=== PATIENT | female | born 1990 | race Caucasian/White ===

== ENCOUNTER → 2017-02-25 | Outpatient (CLI) | payer OTHER ==
[~2017-02-25] MED LIST: NORETAB29 PO; PRLSR20 PO; PROP10TA54 PO; VALA1TAB2 PO
== END | disposition home or self-care (01) ==
LOC: C.PAPS 13:25
PROVIDERS: ATTEND Obstetrics & Gynecology
DX: R87.610 Atypical squamous cells of undetermined significance on cytologic smear of cervix (ASC-US) (principal)

== ENCOUNTER → 2017-05-13 | Outpatient (CLI) | payer OTHER ==
--- NOTE | 2017-05-13 15:29 | MAMMOGRAPHY REPORT ---
ULTRASOUND OF RIGHT BREAST: 05/13/2017 CLINICAL HISTORY: The patient reports a 2 week history of right upper inner breast pain, which is no longer present and has resolved. She denies any palpable lump, nipple discharge, or other complaints . COMPARISON: No prior exams were available for comparison. TECHNIQUE: Real-time targeted ultrasound of the right breast was performed. FINDINGS: Real-time, high resolution targeted ultrasound was performed of the area of the previous p ain pointed out by the patient in the right upper inner quadrant. Sonographically normal tissue is s een in this region, without evidence of a mass or other suspicious sonographic abnormality. IMPRESSION: ACR BI-RADS CATEGORY 1: NEGATIVE No sonographic abnormality at the site of right upper inner quadrant breast pain, which has now resol vivian. There is no sonographic evidence of malignancy. Recommend clinical follow-up. The patient was verbally notified of the results. Keren Kilgore M.D. ah/:05/13/2017 13:45:11 Route Delivery Supervisor: Keren Kilgore MD, [facility] letter sent: Normal 1/2 BI-RADS Code: ACR BI-RADS Category 1: Negative
== END | disposition home or self-care (01) ==
LOC: C.MAMM 13:28
PROVIDERS: ATTEND Physician Assistant
DX: N64.4 Mastodynia (principal)

== ENCOUNTER → 2018-03-17 | Outpatient (CLI) | payer OTHER | END | disposition home or self-care (01) | LOC: C.PAPS 14:32 | PROVIDERS: ATTEND Obstetrics & Gynecology | DX: R87.612 Low grade squamous intraepithelial lesion on cytologic smear of cervix (LGSIL) (principal); Z11.51 Encounter for screening for human papillomavirus (HPV) ==

== ENCOUNTER 2024-02-12 07:40 | Inpatient (IN) ==
[2024-02-12] MEDS ORDERED: LIDOCAINE 1% LOCAL 20 ML VIAL INFIL PRN (08:17)
[2024-02-12] MEDS ORDERED: OXYTOCIN 30 UNITS/NSS 30 UNITS/500 ML BAG IV PRN (08:17)
[2024-02-12] MEDS ORDERED: ACETAMINOPHEN 500 MG TAB PO PRN (08:17)
--- NOTE | 2024-02-12 08:28 | History & Physical Report ---
Date of Service February 12, 2024 Assessment & Plan (1) Encounter for induction of labor: Plan: 33 y/o at 38w 5d here for IOL: Freedman bulb Pitocin AROM as indicated Epidural prn Monitor heart tracing, category 1 Admission and Anticipated Discharge Date Admission Date: February 12, 2024 History of Present Illness Primary Care Provider: NO PCP 33 y/o female currently at 38w 5d with an NEHA 02/22/24 as determined by LMP, who is here for IOL: and Delivery Plans Obesity (BMI between 35-39 @ beginning of ) CHTN - Not on meds *Baby ASA daily start 12-28 wks, continue until delivery Gestational Diabetes Had regular appointments with OB denies Contractions + movement denies Fluid loss denies Vaginal bleeding External FHT and external uterine monitors used: Category 1 tracing, baseline rate 150, moderate variability, irregular uterine contractions OB Labs: Blood Type B Positive 07/14/23 Antibody Screen NEGATIVE 07/14/23 Hemoglobin 12.1 g/dl (12.0-16.0) 11/30/23 Hematocrit 37.8 % (37.0-47.0) 11/30/23 Mean Corpuscular Volume 90.6 fL (80.0-100.0) 07/14/23 Platelet Count 279 K/uL (130-400) 07/14/23 Rubella IgG Antibody Immune (Immune) 07/14/23 Rapid Plasma Reagin Nonreactive (Nonreactive) 07/14/23 Hepatitis B Surface Antigen. NON-REACTIVE (NON-REACTIVE) 07/14/23 Hepatitis C Antibody (EIA) NON-REACTIVE (NON-REACTIVE) 07/14/23 HIV (1&2) Ag and Ab Confirmation NON-REACTIVE (NON-REACTIVE) 07/14/23 Glucose 1 Hour 50 gm Load 132 mg/dl (70-130) H 11/30/23 Maternal Serum Alpha Fetoprotein 32.6 ng/mL 09/09/23 OB Optional Labs: Chlamydia trachomatis RNA Not Detected (NotDetected) 07/14/23 Neisseria gonorrhoeae RNA Not Detected (NotDetected) 07/14/23 Thyroid Stimulating Hormone (TSH) 0.833 uIu/ml (0.300-4.500) 05/30/19 Alpha Fetoprotein Triple Screen SEE NOTE 09/09/23 Labs Reviewed: Carrier screening-negative--mln cfdna-low risk--mln afp neg--akh Allergies Allergy/AdvReac Type Severity Reaction Status Date / Time Sulfa (Sulfonamide Allergy Intermediate HIVES Verified 02/12/24 08:10 Antibiotics) onion AdvReac Intermediate Gastrointestinal Verified 02/12/24 08:10 Upset Home Medications Medication Instructions Recorded Confirmed Type 21-iron fu-folic acid 1 tab PO DAILY 07/06/23 02/12/24 History [ Complete] pyridoxine (vitamin B6) 1 tab PO UNKNOWN 07/06/23 02/12/24 History acetone (urine) test (Ketone Urine #50 ea 12/18/23 02/11/24 Rx Test strips) blood-glucose sensor (FreeStyle #2 ea 12/29/23 02/11/24 Rx Jovan 3 Sensor device) Pepcid 1 tab PO DAILY 02/12/24 02/12/24 History aspirin 81 mg PO DAILY 02/12/24 02/12/24 History Patient History Medical History (Updated 02/12/24 @ 08:32 by Ned Nathan DO) History of chicken pox Orthodontics Dysphagia Herpes simplex oral only ERIN II (cervical intraepithelial neoplasia II) Breast pain Atopic dermatitis ASCUS with positive high risk HPV Acute streptococcal pharyngitis Acute atopic conjunctivitis No significant past medical history Surgical History Status post colposcopy S/P loop electrosurgical excision procedure H/O oral surgery History of wisdom tooth extraction Family History Grandfather Skin cancer Mother Valvular heart disease Grandmother (Maternal) Breast cancer Other Dyslipidemia Hypertension No significant family history Denies family history of Ovarian cancer Prostate cancer Colorectal cancer Social History (Updated 07/06/23 @ 13:31 by Carolyn Nick) Smoking Status: Never smoker Do You Dip or Chew Tobacco: No; Hx Alcohol Use: No Hx Substance Use: No Preferred Language: Wolof Twisthand Required: No Beliefs That Will Affect Care: None marital status: marital status details: Lloyd Lorenzo (35) [phone] Current Living Situation: Spouse Current Living Situation Comment: lives with spouse, dogs current occupational status: employed current occupation: [employer] Other Information That Helps Us Care for You: No Feels Safe at Home: Yes Safety Concerns: Feels Safe At This Time 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 Arzate Review of Systems denies chest pain or SOB denies fever/chills denies ABREU/changes in vision denies dysuria denies LE pain Physical Exam Physical Exam: General: Alert and oriented. No acute distress Cardiac: Regular rate and rhythm, no murmurs appreciated Respiratory: Lungs clear to auscultation bilaterally, No increased work of breathing Abdominal: Soft, non-tender, non-distended. Bowel sounds present. Gravid uterus. Extremities: No lower extremity edema, calves non-tender bilaterally FHT/[place]: Category 1 tracing, baseline rate 150, moderate variability, irregular uterine contractions Results & Data Vital Signs (Past 12 Hours) Vital Signs Temp Pulse Resp BP 02/12/24 07:56 36.7 C 20 02/12/24 07:52 98 H 138/86 Supervising Physician Co-Signing Physician Notes Patient seen with resident and agree with above findings and plan. Induction started with Freedman/Pit. Will AROM when appropriate. Category 1 tracing noted. Normal blood glucose on admission and will monitor as needed. Resident Activity Tracking Resident Involvement: Resident Care Provided Care Provided: OB Delivery
[2024-02-12 08:59] LABS: Hematocrit (blood only) 39.3 % (37.0-47.0); Hemoglobin 13.1 g/dl (12.0-16.0); Mean Corpuscular Hgb Conc 33.3 g/dL (32.0-36.0); Mean Corpuscular Volume 87.1 fL (80.0-100.0); Mean Platelet Volume 12.3 fL (9.4-12.4); Platelet Count 194 K/uL (130-400); RDW Coefficient of Variation 13.3 % (11.5-14.5); RDW Standard Deviation 42.1 fL (36.4-46.3); Red Blood Count 4.51 M/uL (4.20-5.40); White Blood Count 11.38 K/ul (4.8-10.8)
[2024-02-12] MEDS: OXYTOCIN 30 UNITS/NSS 30 UNITS/500 ML BAG IV PRN (09:04)
[2024-02-12] MEDS: LACTATED RINGER'S 1,000 ML IV PRN (09:04)
--- NOTE | 2024-02-12 16:15 | Labor Progress Brief Note ---
Date of Service February 12, 2024 Subjective notes contractions but not uncomfortable Assessment & Plan (1) Encounter for induction of labor: (2) Gestational diabetes: (3) Chronic hypertension affecting : Plan At a crossroads. Pit maxed without further monitoring. Recommend she have arom at this point, but she is uncertain she wants to move with this. Educated that need arom/srom to get moving further into more active labor. Patient and spouse express understanding. she initially thought she might get an epidural but then decided not to at that point. Can have epidural at any point. Patient desires to continue current management for another couple of hours. Fetus category one. Confirmed cephalic by ultrasound. Admission and Anticipated Discharge Date Admission Date: February 12, 2024 Physical Exam Physical Exam: difficult exam secondary to patient discomfort cx--3/80/-2 toco--q2-4, pit at 20 efm--150s with mod variability, small accels no decels Results & Data Vital Signs (Past 12 Hours) Vital Signs Temp Pulse Resp BP 02/12/24 15:02 100 H 02/12/24 15:02 134/66 02/12/24 14:00 86 02/12/24 14:00 138/73 02/12/24 13:02 91 H 02/12/24 13:02 140/69 02/12/24 11:55 18 02/12/24 11:55 36.7 C 18 02/12/24 11:52 77 02/12/24 11:52 116/65 02/12/24 10:57 83 02/12/24 10:57 128/65 02/12/24 10:01 98 H 02/12/24 10:01 132/83 02/12/24 09:15 89 02/12/24 09:15 140/82 02/12/24 07:56 36.7 C 20 02/12/24 07:52 98 H 138/86 Coding Level of Care Code None Diagnoses Encounter for induction of labor Z34.90 Gestational diabetes O24.419 Chronic hypertension affecting O10.919
--- NOTE | 2024-02-12 20:06 | Labor Progress Brief Note ---
Date of Service February 12, 2024 Subjective patient not feeling much different. agreeable to arom. Assessment & Plan (1) Encounter for induction of labor: (2) Chronic hypertension affecting : Plan continue current management. Fetus reassuring category 2, but mostly category one. Admission and Anticipated Discharge Date Admission Date: February 12, 2024 Physical Exam Physical Exam: cx--3/75/-2 toco--q2-4, pit at 20 efm--140s with mod variability, small accels present. Occasional small variable type decel arom--clear, old blood, mucous Results & Data Vital Signs (Past 12 Hours) Vital Signs Temp Pulse Resp BP 02/12/24 19:10 107 H 02/12/24 19:10 142/78 H 02/12/24 19:00 18 02/12/24 19:00 18 02/12/24 18:20 99 H 02/12/24 18:20 128/78 02/12/24 17:15 100 H 02/12/24 17:15 135/79 02/12/24 16:18 20 02/12/24 16:18 37.2 C 20 02/12/24 16:17 95 H 02/12/24 16:17 131/76 02/12/24 15:02 100 H 02/12/24 15:02 134/66 02/12/24 14:00 86 02/12/24 14:00 138/73 02/12/24 13:02 91 H 02/12/24 13:02 140/69 02/12/24 11:55 18 02/12/24 11:55 36.7 C 18 02/12/24 11:52 77 02/12/24 11:52 116/65 02/12/24 10:57 83 02/12/24 10:57 128/65 02/12/24 10:01 98 H 02/12/24 10:01 132/83 02/12/24 09:15 89 02/12/24 09:15 140/82 Coding Level of Care Code None Diagnoses Encounter for induction of labor Z34.90 Chronic hypertension affecting O10.919
[2024-02-12] MEDS: PANTOprazole 40 MG TAB PO SCH (22:40)
[2024-02-12] MEDS: BUPIVACAINE 0.25% PF 30 ML VIAL ONE (22:53)
[2024-02-12] MEDS: SODIUM CHLORIDE 0.9% PF INJ 10 ML VIAL ONE (22:53)
[2024-02-12] MEDS: fentaNYL citrate PF 100 MCG/2 ML VIAL ONE (22:53)
[2024-02-12] MEDS: ePHEDrine sulfate 50 MG/ML AMP ONE (22:53)
[2024-02-12] MEDS: LIDOCAINE 2%/EPINEPHRINE 1:200,000 20 ML PF ONE (22:54)
[2024-02-12] MEDS: fentANYL 2 MCG/ML BUPIVacaine 0.125%-NSS 100ML BAG ONE (22:54)
[2024-02-12] MEDS ORDERED: SODIUM CHLORIDE 0.9% PF INJ 10 ML VIAL ONE (23:54)
[2024-02-12] MEDS ORDERED: ePHEDrine sulfate 50 MG/ML AMP ONE (23:54)
[2024-02-13] MEDS ORDERED: diphenhydrAMINE 50 MG/ML VIAL IV PRN (00:12)
[2024-02-13] MEDS ORDERED: NALOXONE HCL 0.4 MG/1 ML VIAL/CARP IV PRN ×2 (00:12→13:31)
[2024-02-13] MEDS ORDERED: SODIUM CHLORIDE 0.9% PF INJ 10 ML VIAL EPI STA (00:12)
[2024-02-13] MEDS ORDERED: BUPIVACAINE 0.25% PF 30 ML VIAL EPI PRN (00:12)
[2024-02-13] MEDS ORDERED: ePHEDrine sulfate 50 MG/ML AMP IV PRN ×2 (00:12→13:31)
[2024-02-13] MEDS ORDERED: LIDOCAINE 2%/EPINEPHRINE 1:200,000 20 ML PF EPI STA (00:12)
[2024-02-13] MEDS ORDERED: NALOXONE HCL 1 MG in SODIUM CHLORIDE 0.9% 1,000 ML IV PRN ×2 (00:12→13:31)
[2024-02-13] MEDS ORDERED: fentaNYL citrate PF 100 MCG/2 ML VIAL EPI PRN (00:12)
[2024-02-13] MEDS ORDERED: LIDOCAINE 2% MPF LOCAL 5 ML VIAL EPI PRN (00:12)
[2024-02-13] MEDS ORDERED: ROPIVACAINE 0.5% PF 5 MG/ML 20 ML VIAL EPI PRN (00:12)
[2024-02-13] MEDS ORDERED: SODIUM CHLORIDE 0.9% PF INJ 10 ML VIAL EPI PRN (00:12)
[2024-02-13] MEDS ORDERED: NALBUPHINE HCL 5 MG in SYRINGE 0 ML IV PRN ×2 (00:12→13:31)
[2024-02-13] MEDS ORDERED: fentaNYL citrate PF 100 MCG/2 ML VIAL EPI STA (00:12)
[2024-02-13] MEDS ORDERED: BUPIVACAINE 0.25% PF 30 ML VIAL EPI STA (00:12)
--- NOTE | 2024-02-13 00:14 | Anesthesiology Consultation ---
Date of Service February 13, 2024 Assessment & Plan (1) Encounter for pre-operative examination: Chart Review Chart Review: Patient NOT seen in Pre Admission Testing and Acceptable Risk for Labor Epidural Consults Requested none History Height/Weight Height: 5 ft 1 in Weight: 97.522 kg Allergies Allergy/AdvReac Type Severity Reaction Status Date / Time Sulfa (Sulfonamide Allergy Intermediate HIVES Verified 02/12/24 08:10 Antibiotics) onion AdvReac Intermediate Gastrointestinal Verified 02/12/24 08:10 Upset Medications Home Medications Medication Instructions Recorded Confirmed Last Taken 21-iron fu-folic acid 1 tab PO DAILY 07/06/23 02/12/24 02/11/24 20:00 [ Complete] pyridoxine (vitamin B6) 1 tab PO UNKNOWN 07/06/23 02/12/24 02/11/24 20:00 acetone (urine) test (Ketone Urine #50 ea 12/18/23 02/11/24 Unknown Test strips) blood-glucose sensor (FreeStyle #2 ea 12/29/23 02/11/24 Unknown Jovan 3 Sensor device) Pepcid 1 tab PO DAILY 02/12/24 02/12/24 02/12/24 06:00 aspirin 81 mg PO DAILY 02/12/24 02/12/24 02/11/24 12:00 Active Medications Generic Name Dose Route Start Last Admin Trade Name Freq PRN Reason Stop Dose Admin Oxytocin 30 units in 500 mls @ 20 mls/hr 02/12/24 08:18 02/12/24 15:30 Pitocin 30 Units/Nss IV 02/14/24 08:17 1.2 units/hr .Q24H PRN 20 mls/hr Labor Induction/Augmentation Titration Protocol 1.2 UNITS/HR Lactated Ringer's 1,000 mls @ 125 mls/hr 02/12/24 08:17 02/12/24 20:10 Lr IV 02/14/24 08:16 125 mls/hr .Q8H PRN Administration L&D Protocol Protocol Pantoprazole Sodium 40 mg 02/12/24 22:30 02/12/24 22:40 Pantoprazole 40 Mg Tab PO 03/13/24 22:29 40 mg BID TIM Administration Past Medical History Medical History (Updated 02/13/24 @ 00:14 by Bruce Celis MD) Encounter for pre-operative examination History of chicken pox Orthodontics Dysphagia Herpes simplex oral only ERIN II (cervical intraepithelial neoplasia II) Breast pain Atopic dermatitis ASCUS with positive high risk HPV Acute streptococcal pharyngitis Acute atopic conjunctivitis No significant past medical history Exercise / Class Metabolic Activity II 4-5 Yardwork/Stairs/Walk up hill Past Family History Family History Grandfather Skin cancer Mother Valvular heart disease Grandmother (Maternal) Breast cancer Other Dyslipidemia Hypertension No significant family history Denies family history of Ovarian cancer Prostate cancer Colorectal cancer Past Surgical History Surgical History Status post colposcopy S/P loop electrosurgical excision procedure H/O oral surgery History of wisdom tooth extraction Social History Smoking Status: Never smoker Do You Dip or Chew Tobacco: No Hx Alcohol Use: No Hx Substance Use: No Physical Exam Vital Signs Last Vital Signs Temp 36.8 C 02/12/24 23:00 Pulse 113 H 02/13/24 00:28 Resp 16 02/12/24 23:00 BP 127/81 02/12/24 23:07 Pulse Ox 98 02/13/24 00:28 Testing Laboratory Results 02/12/24 08:35 02/12/24 02/12/24 02/12/24 21:07 19:12 17:18 POC Glucose 77 78 70 02/12/24 16:19 POC Glucose 81
[2024-02-13] MEDS: fentANYL 2 MCG/ML BUPIVacaine 0.125%-NSS 100ML BAG ONE (00:23)
[2024-02-13] MEDS: BUPIVACAINE 0.25% PF 30 ML VIAL ONE (00:24)
[2024-02-13] MEDS: fentaNYL citrate PF 100 MCG/2 ML VIAL ONE (00:24)
[2024-02-13] MEDS: LIDOCAINE 2%/EPINEPHRINE 1:200,000 20 ML PF ONE (00:34)
--- NOTE | 2024-02-13 01:54 | Labor Progress Brief Note ---
Date of Service February 13, 2024 Subjective comfortable with epidural Assessment & Plan (1) Encounter for induction of labor: (2) Gestational diabetes: (3) Chronic hypertension affecting : Plan Sugars doing well. iupc placed and contractions may not be adequate. Goal of >200mvus. Fetus overall category one, with occasional variable. continue current management. Admission and Anticipated Discharge Date Admission Date: February 12, 2024 Physical Exam Physical Exam: cx--/-2 iupc placed toco--difficulty picking up contractions with external belt, maybe 2-4, pit at 20 efm--140s with mod variability, accels present, occasional variable. Results & Data Vital Signs (Past 12 Hours) Vital Signs Temp Pulse Resp BP Pulse Ox 02/13/24 01:48 102 H 100 02/13/24 01:43 99 H 100 02/13/24 01:42 90 120/65 02/13/24 01:38 96 H 99 02/13/24 01:33 95 H 99 02/13/24 01:30 16 02/13/24 01:30 16 02/13/24 01:28 94 H 99 02/13/24 01:27 94 H 129/78 02/13/24 01:23 98 H 99 02/13/24 01:18 106 H 100 02/13/24 01:13 100 H 100 02/13/24 01:11 104 H 128/74 02/13/24 01:08 91 H 99 02/13/24 01:06 102 H 127/78 02/13/24 01:03 96 H 99 02/13/24 01:02 100 H 129/77 02/13/24 01:00 16 02/13/24 01:00 16 02/13/24 00:58 103 H 98 02/13/24 00:57 106 H 127/78 02/13/24 00:53 96 H 99 02/13/24 00:50 100 H 16 134/77 02/13/24 00:48 108 H 140/93 98 02/13/24 00:46 107 H 135/80 02/13/24 00:44 104 H 129/78 02/13/24 00:43 104 H 97 02/13/24 00:42 100 H 129/77 02/13/24 00:40 107 H 16 124/78 02/13/24 00:38 107 H 127/80 98 02/13/24 00:36 108 H 127/79 02/13/24 00:34 107 H 133/80 02/13/24 00:33 118 H 100 02/13/24 00:28 113 H 98 02/13/24 00:22 121 H 100 02/13/24 00:17 109 H 100 02/12/24 23:07 101 H 02/12/24 23:07 127/81 02/12/24 23:00 16 02/12/24 23:00 36.8 C 16 02/12/24 21:59 37.3 C 02/12/24 21:58 100 H 02/12/24 21:58 120/78 02/12/24 21:05 103 H 02/12/24 21:05 133/80 02/12/24 20:17 101 H 02/12/24 20:17 135/78 02/12/24 20:10 37.3 C 02/12/24 19:10 107 H 02/12/24 19:10 142/78 H 02/12/24 19:00 18 02/12/24 19:00 18 02/12/24 18:20 99 H 02/12/24 18:20 128/78 02/12/24 17:15 100 H 02/12/24 17:15 135/79 02/12/24 16:18 20 02/12/24 16:18 37.2 C 20 02/12/24 16:17 95 H 02/12/24 16:17 131/76 02/12/24 15:02 100 H 02/12/24 15:02 134/66 02/12/24 14:00 86 02/12/24 14:00 138/73 Coding Level of Care Code None Diagnoses Encounter for induction of labor Z34.90 Gestational diabetes O24.419 Chronic hypertension affecting O10.919
--- NOTE | 2024-02-13 06:41 | Labor Progress Brief Note ---
Date of Service February 13, 2024 Subjective Comfortable with epidural. However, getting frustrated at lack of progress. Has not slept and feeling tired and hungry. Assessment & Plan (1) Encounter for induction of labor: Plan Has not made any change. Contractions not yet adequate. Continuing to increase pitocin. Long conversation about course up until this time. Does not have an adequate contraction pattern, so not surprised seeing cervical change. Discussed other ways to try to get better contraction pattern, like halfing pitocin and going up again. Expressed I understand that she is frustrated, but not ready to give up on getting a vaginal delivery yet. Although I did express concern about the lack of progress, but again , not adequate contractions. Discussed that if she told me she wanted a c/s now, would proceed but that is not what I am yet recommending. Questions asked and answered to the best of my ability understanding I cannot predict what will happen but want to give her every chance for a vaginal delivery that we can. They express understanding of this. Admission and Anticipated Discharge Date Admission Date: February 12, 2024 Physical Exam Physical Exam: cx--3-4cm per last check by nursing. Essentially unchanged toco--q1-2min, disfunctional pattern, pit at 28, mvus rare >200 efm--140s with mod variability, accels present, rare variable afebrile Results & Data Vital Signs (Past 12 Hours) Vital Signs Temp Pulse Resp BP Pulse Ox 02/13/24 06:28 92 H 98 02/13/24 06:27 90 129/70 02/13/24 06:23 95 H 98 02/13/24 06:18 97 H 98 02/13/24 06:13 102 H 98 02/13/24 06:12 105 H 123/82 02/13/24 06:08 94 H 95 02/13/24 06:03 113 H 99 02/13/24 06:00 16 02/13/24 06:00 16 02/13/24 05:58 90 97 02/13/24 05:57 92 H 125/71 02/13/24 05:53 90 98 02/13/24 05:48 94 H 98 02/13/24 05:43 95 H 97 02/13/24 05:42 89 125/70 02/13/24 05:38 94 H 99 02/13/24 05:35 36.7 C 06/29/24 05:33 95 H 98 02/13/24 05:28 98 02/13/24 05:28 94 H 02/13/24 05:28 94 H 109/61 02/13/24 05:23 88 98 02/13/24 05:18 91 H 99 02/13/24 05:13 88 98 02/13/24 05:12 83 108/56 L 02/13/24 05:08 88 98 02/13/24 05:03 90 98 02/13/24 05:00 16 02/13/24 05:00 16 02/13/24 04:58 99 02/13/24 04:58 83 02/13/24 04:58 86 105/59 L 02/13/24 04:53 94 H 99 02/13/24 04:48 93 H 100 02/13/24 04:43 110 H 99 02/13/24 04:42 91 H 108/57 L 02/13/24 04:38 88 96 02/13/24 04:33 88 98 02/13/24 04:30 36.7 C 02/13/24 04:28 92 H 96 02/13/24 04:27 84 102/55 L 02/13/24 04:23 90 99 02/13/24 04:18 90 97 02/13/24 04:13 87 98 02/13/24 04:12 86 107/54 L 02/13/24 04:08 92 H 98 02/13/24 04:03 90 98 02/13/24 04:00 16 02/13/24 04:00 16 02/13/24 03:58 86 100/55 L 98 02/13/24 03:53 88 97 02/13/24 03:48 106 H 100 02/13/24 03:43 98 02/13/24 03:43 96 H 02/13/24 03:43 90 125/75 02/13/24 03:38 101 H 99 02/13/24 03:33 104 H 98 02/13/24 03:30 18 02/13/24 03:30 18 02/13/24 03:28 107 H 97 02/13/24 03:27 96 H 127/67 02/13/24 03:23 98 H 97 02/13/24 03:18 105 H 98 02/13/24 03:14 100 H 127/77 02/13/24 03:13 104 H 98 02/13/24 03:08 102 H 98 02/13/24 03:03 93 H 98 02/13/24 03:00 18 02/13/24 03:00 37.3 C 18 02/13/24 02:58 94 H 117/82 98 02/13/24 02:53 94 H 100 02/13/24 02:48 92 H 100 02/13/24 02:43 107 H 99 02/13/24 02:42 94 H 125/79 02/13/24 02:38 98 H 99 02/13/24 02:33 91 H 99 02/13/24 02:30 18 02/13/24 02:30 18 02/13/24 02:28 101 H 121/79 99 02/13/24 02:23 93 H 98 02/13/24 02:18 98 H 98 02/13/24 02:13 102 H 100 02/13/24 02:12 92 H 122/80 02/13/24 02:08 105 H 100 02/13/24 02:03 96 H 97 02/13/24 01:58 90 99 02/13/24 01:57 97 H 123/87 02/13/24 01:53 97 H 99 02/13/24 01:48 18 02/13/24 01:48 18 02/13/24 01:48 102 H 100 02/13/24 01:43 99 H 100 02/13/24 01:42 90 120/65 02/13/24 01:38 96 H 99 02/13/24 01:33 95 H 99 02/13/24 01:30 16 02/13/24 01:30 16 02/13/24 01:28 94 H 99 02/13/24 01:27 94 H 129/78 02/13/24 01:23 98 H 99 02/13/24 01:18 106 H 100 02/13/24 01:13 100 H 100 02/13/24 01:11 104 H 128/74 02/13/24 01:08 91 H 99 02/13/24 01:06 102 H 127/78 02/13/24 01:03 96 H 99 02/13/24 01:02 100 H 129/77 02/13/24 01:00 16 02/13/24 01:00 16 02/13/24 00:58 103 H 98 02/13/24 00:57 106 H 127/78 02/13/24 00:53 96 H 99 02/13/24 00:50 100 H 16 134/77 02/13/24 00:48 108 H 140/93 98 02/13/24 00:46 107 H 135/80 02/13/24 00:44 104 H 129/78 02/13/24 00:43 104 H 97 02/13/24 00:42 100 H 129/77 02/13/24 00:40 107 H 16 124/78 02/13/24 00:38 107 H 127/80 98 02/13/24 00:36 108 H 127/79 02/13/24 00:34 107 H 133/80 02/13/24 00:33 118 H 100 02/13/24 00:28 113 H 98 02/13/24 00:22 121 H 100 02/13/24 00:17 109 H 100 02/12/24 23:07 101 H 02/12/24 23:07 127/81 02/12/24 23:00 16 02/12/24 23:00 36.8 C 16 02/12/24 21:59 37.3 C 02/12/24 21:58 100 H 02/12/24 21:58 120/78 02/12/24 21:05 103 H 02/12/24 21:05 133/80 02/12/24 20:17 101 H 02/12/24 20:17 135/78 02/12/24 20:10 37.3 C 02/12/24 19:10 107 H 02/12/24 19:10 142/78 H 02/12/24 19:00 18 02/12/24 19:00 18 Coding Level of Care Code None Diagnoses Encounter for induction of labor Z34.90
[2024-02-13] MEDS: CALCIUM CARBONATE 500 MG CHEWABLE TAB PO PRN (07:22)
[2024-02-13] MEDS: fentANYL 2 MCG/ML BUPIVacaine 0.125%-NSS 100ML BAG EPI PRN (08:20)
[2024-02-13] MEDS ORDERED: OXYTOCIN 10 UNITS/ML VIAL ONE (12:33)
[2024-02-13] MEDS ORDERED: fentaNYL citrate PF 100 MCG/2 ML VIAL ONE (12:34)
[2024-02-13] MEDS: ONDANSETRON INJ 2 MG/ML 2 ML VIAL IV PRN (12:38)
[2024-02-13] MEDS: ceFAZolin 3000MG 3,000 MG/72.5 ML BAG IV SCH (12:38)
--- NOTE | 2024-02-13 12:39 | Labor Progress Brief Note ---
Date of Service February 13, 2024 Subjective Presented to bedside for reevaluation. Tocometer shows a regular contractions about every 2 to 3 minutes but are still not adequate in terms of intensity based on MVU evaluation. Increase Pitocin dosing to 30 for approximately 45 minutes with no change noted. Discontinued oxytocin for 30 minutes then restarted at 15. Assessment & Plan (1) Supervision of normal first : Plan: Presented to bedside for further evaluation of labor. MVUs remain inadequate although having regular frequent contractions. Cervix basically unchanged since the [place]ed[place] came out at 4:00pm yesterday. We have reached 30 of Pitocin and restarted at half x 1. Reevaluation is again unchanged. We discussed options for continuing with induction process versus proceeding with a section. Discussed that she does not meet strict criteria for failed induction. Discussed option for elective proceeding with a section. After discussion of risks/benefits Nuvia would like to proceed with a primary section. The procedure reviewed in detail including risks and benefits. Consent forms reviewed and signed. Will use Ancef and azithromycin for infection prophylaxis. Category 1 tracing still noted. Trimester: third trimester Qualified Code(s): Z34.03 - Encounter for supervision of normal first , third trimester (2) Chronic hypertension affecting : (3) Gestational diabetes: Gestational diabetes mellitus control: diet-controlled Trimester: third trimester Qualified Code(s): O24.410 - Gestational diabetes mellitus in , diet controlled (4) Encounter for induction of labor: Admission and Anticipated Discharge Date Admission Date: February 12, 2024 Physical Exam Genitourinary: normal external appearance Manual OB Exam: + cervical dilation (3-4), + cervical effacement 80%, + station -1 and + amniotic fluid clear OB Exam Monitor Tracing: + external FHT monitor used, + category I and + normal FHT variability; no early decelerations present, no late decelerations present and no variable decelerations Results & Data Vital Signs (Past 12 Hours) Vital Signs Temp Pulse Resp BP Pulse Ox 02/13/24 12:24 104 H 100 02/13/24 12:19 89 99 02/13/24 12:15 86 152/77 H 02/13/24 12:14 98 H 100 02/13/24 12:09 110 H 100 02/13/24 12:04 75 99 02/13/24 12:00 20 02/13/24 12:00 20 02/13/24 11:59 75 99 02/13/24 11:54 76 99 02/13/24 11:49 77 99 02/13/24 11:44 74 100 02/13/24 11:39 77 99 02/13/24 11:35 80 107/59 L 02/13/24 11:34 85 100 02/13/24 11:30 18 02/13/24 11:30 18 02/13/24 11:29 78 99 02/13/24 11:24 76 99 02/13/24 11:19 77 98 02/13/24 11:14 77 98 02/13/24 11:09 76 98 02/13/24 11:04 75 97 02/13/24 11:01 81 99/54 L 02/13/24 11:00 20 02/13/24 11:00 37.2 C 20 02/13/24 10:59 85 98 02/13/24 10:54 87 98 02/13/24 10:49 81 99 02/13/24 10:44 85 98 02/13/24 10:39 98 H 97 02/13/24 10:38 85 116/62 02/13/24 10:34 85 98 02/13/24 10:30 20 02/13/24 10:30 20 02/13/24 10:29 89 98 02/13/24 10:24 81 97 02/13/24 10:19 90 98 02/13/24 10:14 86 98 02/13/24 10:13 83 118/79 02/13/24 10:09 75 95 02/13/24 10:03 87 100 02/13/24 10:00 18 02/13/24 10:00 36.9 C 18 02/13/24 09:58 83 99 02/13/24 09:53 96 H 100 02/13/24 09:48 86 100 02/13/24 09:43 88 99 02/13/24 09:38 83 100 02/13/24 09:33 85 131/81 100 02/13/24 09:30 20 02/13/24 09:30 20 02/13/24 09:28 90 99 02/13/24 09:23 92 H 100 02/13/24 09:18 83 99 02/13/24 09:13 79 100 02/13/24 09:08 85 100 02/13/24 09:03 75 99 02/13/24 09:01 37.4 C 02/13/24 09:00 20 02/13/24 09:00 20 02/13/24 08:58 75 99 02/13/24 08:53 81 100 02/13/24 08:49 75 111/70 02/13/24 08:48 78 100 02/13/24 08:43 86 100 02/13/24 08:38 95 H 100 02/13/24 08:33 96 H 100 02/13/24 08:30 20 02/13/24 08:30 20 02/13/24 08:28 86 99 02/13/24 08:23 81 99 02/13/24 08:18 85 99 02/13/24 08:13 84 100 02/13/24 08:08 83 100 02/13/24 08:03 83 99 02/13/24 08:00 18 02/13/24 08:00 18 02/13/24 07:58 81 98 02/13/24 07:57 80 108/57 L 02/13/24 07:53 89 99 02/13/24 07:48 99 H 98 02/13/24 07:44 100 H 92 02/13/24 07:43 95 H 98 02/13/24 07:38 97 H 99 02/13/24 07:33 98 02/13/24 07:33 102 H 02/13/24 07:33 97 H 92 02/13/24 07:30 20 02/13/24 07:30 36.9 C 20 02/13/24 07:28 92 H 97 02/13/24 07:23 105 H 97 02/13/24 07:18 89 98 02/13/24 07:14 102 H 92 02/13/24 07:13 98 H 98 02/13/24 07:11 90 109/55 L 02/13/24 07:08 79 99 02/13/24 07:03 86 98 02/13/24 07:00 16 02/13/24 07:00 16 02/13/24 06:58 87 98 02/13/24 06:57 82 114/57 L 02/13/24 06:53 88 97 02/13/24 06:48 83 96 02/13/24 06:43 95 H 96 02/13/24 06:38 91 H 96 02/13/24 06:33 100 H 98 02/13/24 06:30 16 02/13/24 06:30 16 02/13/24 06:30 16 02/13/24 06:30 16 02/13/24 06:28 92 H 98 02/13/24 06:27 90 129/70 02/13/24 06:23 95 H 98 02/13/24 06:18 97 H 98 02/13/24 06:13 102 H 98 02/13/24 06:12 105 H 123/82 02/13/24 06:08 94 H 95 02/13/24 06:03 113 H 99 02/13/24 06:00 16 02/13/24 06:00 16 02/13/24 05:58 90 97 02/13/24 05:57 92 H 125/71 02/13/24 05:53 90 98 02/13/24 05:48 94 H 98 02/13/24 05:43 95 H 97 02/13/24 05:42 89 125/70 02/13/24 05:38 94 H 99 02/13/24 05:35 36.7 C 02/13/24 05:33 95 H 98 02/13/24 05:28 98 02/13/24 05:28 94 H 02/13/24 05:28 94 H 109/61 02/13/24 05:23 88 98 02/13/24 05:18 91 H 99 02/13/24 05:13 88 98 02/13/24 05:12 83 108/56 L 02/13/24 05:08 88 98 02/13/24 05:03 90 98 02/13/24 05:00 16 02/13/24 05:00 16 02/13/24 04:58 99 02/13/24 04:58 83 02/13/24 04:58 86 105/59 L 02/13/24 04:53 94 H 99 02/13/24 04:48 93 H 100 02/13/24 04:43 110 H 99 02/13/24 04:42 91 H 108/57 L 02/13/24 04:38 88 96 02/13/24 04:33 88 98 02/13/24 04:30 36.7 C 02/13/24 04:28 92 H 96 02/13/24 04:27 84 102/55 L 02/13/24 04:23 90 99 02/13/24 04:18 90 97 02/13/24 04:13 87 98 02/13/24 04:12 86 107/54 L 02/13/24 04:08 92 H 98 02/13/24 04:03 90 98 02/13/24 04:00 16 02/13/24 04:00 16 02/13/24 03:58 86 100/55 L 98 02/13/24 03:53 88 97 02/13/24 03:48 106 H 100 02/13/24 03:43 98 02/13/24 03:43 96 H 02/13/24 03:43 90 125/75 02/13/24 03:38 101 H 99 02/13/24 03:33 104 H 98 02/13/24 03:30 18 02/13/24 03:30 18 02/13/24 03:28 107 H 97 02/13/24 03:27 96 H 127/67 02/13/24 03:23 98 H 97 02/13/24 03:18 105 H 98 02/13/24 03:14 100 H 127/77 02/13/24 03:13 104 H 98 02/13/24 03:08 102 H 98 02/13/24 03:03 93 H 98 02/13/24 03:00 18 02/13/24 03:00 37.3 C 18 02/13/24 02:58 94 H 117/82 98 02/13/24 02:53 94 H 100 02/13/24 02:48 92 H 100 02/13/24 02:43 107 H 99 02/13/24 02:42 94 H 125/79 02/13/24 02:38 98 H 99 02/13/24 02:33 91 H 99 02/13/24 02:30 18 02/13/24 02:30 18 02/13/24 02:28 101 H 121/79 99 02/13/24 02:23 93 H 98 02/13/24 02:18 98 H 98 02/13/24 02:13 102 H 100 02/13/24 02:12 92 H 122/80 02/13/24 02:08 105 H 100 02/13/24 02:03 96 H 97 02/13/24 01:58 90 99 02/13/24 01:57 97 H 123/87 02/13/24 01:53 97 H 99 02/13/24 01:48 18 02/13/24 01:48 18 02/13/24 01:48 102 H 100 02/13/24 01:43 99 H 100 02/13/24 01:42 90 120/65 02/13/24 01:38 96 H 99 02/13/24 01:33 95 H 99 02/13/24 01:30 16 02/13/24 01:30 16 02/13/24 01:28 94 H 99 02/13/24 01:27 94 H 129/78 02/13/24 01:23 98 H 99 02/13/24 01:18 106 H 100 02/13/24 01:13 100 H 100 02/13/24 01:11 104 H 128/74 02/13/24 01:08 91 H 99 02/13/24 01:06 102 H 127/78 02/13/24 01:03 96 H 99 02/13/24 01:02 100 H 129/77 02/13/24 01:00 16 02/13/24 01:00 16 02/13/24 00:58 103 H 98 02/13/24 00:57 106 H 127/78 02/13/24 00:53 96 H 99 02/13/24 00:50 100 H 16 134/77 02/13/24 00:48 108 H 140/93 98 02/13/24 00:46 107 H 135/80 02/13/24 00:44 104 H 129/78 02/13/24 00:43 104 H 97 02/13/24 00:42 100 H 129/77 02/13/24 00:40 107 H 16 124/78 02/13/24 00:38 107 H 127/80 98 02/13/24 00:36 108 H 127/79 02/13/24 00:34 107 H 133/80 02/13/24 00:33 118 H 100 Coding Level of Care Code None Diagnoses Encounter for supervision of normal first in third trimester Z34.03 Trimester: third trimester Chronic hypertension affecting O10.919 Diet controlled gestational diabetes mellitus (GDM) in third trimester O24.410 Gestational diabetes mellitus control: diet-controlled Trimester: third trimester Encounter for induction of labor Z34.90
[2024-02-13] MEDS: CITRIC ACID/SODIUM CITRATE 15 ML UDC PO SCH (12:43)
[2024-02-13] MEDS: AZITHROMYCIN 500 MG in DEXTROSE 5% 250 ML IV SCH (12:50)
[2024-02-13] MEDS ORDERED: PHENYLEPHRINE 100MCG/ML 10ML SYR IV ONE (13:10)
[2024-02-13] MEDS ORDERED: MoRPHine SULFATE PF 1 MG/ML 10 ML AMP/VIAL ONE (13:11)
[2024-02-13] MEDS ORDERED: ONDANSETRON INJ 2 MG/ML 2 ML VIAL IV PRN (13:31)
[2024-02-13] MEDS ORDERED: MoRPHine SULFATE PF 1 MG/ML 10 ML AMP/VIAL INT SPINAL ONE (13:31)
[2024-02-13] MEDS ORDERED: LACTATED RINGER'S 500 ML IV PRN (13:31)
[2024-02-13] MEDS ORDERED: NALOXONE HCL 0.08 MG in SYRINGE 1.8 ML IV PRN (13:31)
[2024-02-13] MEDS ORDERED: PROMETHAZINE HCL 6.25 MG in SODIUM CHLORIDE 0.9% 50 ML IV PRN (13:31)
[2024-02-13] MEDS ORDERED: PROMETHAZINE HCL INJ 25 MG/ML 1 ML VIAL ONE (13:43)
[2024-02-13] MEDS ORDERED: NO NARCOTICS OR SEDATIVES SCH (13:45)
[2024-02-13] MEDS ORDERED: DC INTRASPINAL MORPHINE SCH (13:45)
[2024-02-13] MEDS ORDERED: SODIUM CHLORIDE 0.9% 1,000 ML IV SCH (14:00)
--- NOTE | 2024-02-13 14:00 | Anesthesia Procedure Note ---
Date of Service February 13, 2024 Anesthesia Post Epidural Note Vital Signs Vital Signs: Temp Pulse Resp BP Pulse Ox 37.2 C 122 H 20 136/83 98 02/13/24 11:00 02/13/24 12:49 02/13/24 12:00 02/13/24 12:47 02/13/24 12:49 Pain Intensity Right Hip: Pain Intensity: 9 Notes Mental Status: alert / awake / arousable Nausea / Vomiting: adequately controlled Pain: adequately controlled Airway Patency, RR, SpO2: stable & adequate BP & HR: stable & adequate Hydration State: stable & adequate Neuraxial Anesthesia: was administered and sensory block is resolving Anesthetic Complications: no major complications apparent Epidural: Removed without complications and With tip intact
[2024-02-13] MEDS ORDERED: DIPHTHER/TETAN/PERTUS Vaccine (Tdap, Adol/Adult) 0.5mL IM ONE (14:01)
[2024-02-13] MEDS ORDERED: SENNA 8.6 MG TAB PO PRN (14:01)
[2024-02-13] MEDS ORDERED: BENZOCAINE 20% SPRY 85 APPLN/85 GM CAN EXT PRN (14:01)
[2024-02-13] MEDS ORDERED: PROMETHAZINE HCL 25 MG in SODIUM CHLORIDE 0.9% 50 ML IV PRN (14:01)
[2024-02-13] MEDS ORDERED: HYDROCORTISONE ACETATE 25 MG SUPP PR PRN (14:01)
[2024-02-13] MEDS ORDERED: MAGNESIUM HYDROXIDE SUSP 30 ML UDC PO PRN (14:01)
--- NOTE | 2024-02-13 14:05 | Operative Report ---
PG Post Operative Report Pre & Post Diagnosis Operation Date: 02/13/24 12:30 Pre-Op Diagnosis: Elective , FAILURE TO PROGRESS Post-Op Diagnosis: Elective , FAILURE TO PROGRESS I identified the patient and participated in the time-out.: Yes Procedure Operation Date: 02/13/24 12:30 Actual Procedures p Section in - Flo Chandra MD Surgeon Flo Chandra MD Battery Engineer Nursing staff Estimated Blood Loss 740 Findings Consistent with Post-Op Diagnosis Anterior lower uterine segment fibroid approximately 3 to 4 cm in size Specimens Placenta Description of Procedure Patient was taken the operating room after consent was ensured. Upon presentation she was properly identified. Anesthesia obtained patient prepped and draped in normal sterile fashion. Preprocedural timeout was performed. A Pfannenstiel incision was made with a knife. This was carried down to underly ing fascia with the Bovie. The fascia was nicked at the midline with a knife and extended laterally with pickups and Briones scissors. Superior aspect of the fascia was grasped with Suleiman's x 2 elevated off the underlying rectus muscles using blunt dissection. Abdominal cavity was entered bluntly and placed on stretch to provide adequate room for delivery. There was noted to be a lower uterine segment anterior fibroid measuring 3 to 4 cm. This was directly in the middle of the standard location of the uterine incision. Uterus incision was moved up approximately 2 cm above the fibroid. On inspection the incision was still noted to be in the lower uterine segment. was delivered through the hysterotomy followed by body and shoulders. noted to be vigorous upon delivery and 30 second delayed cord clamping initiated. Baby taken to the waiting nursery staff. Attention was turned to delivery of the placenta which delivered intact with three-vessel cord gentle cord traction. Uterus was exteriorized and several passes were made to remove any remaining membranes with a dry lap. Hysterotomy was reapproximated with 0 Vicryl continuous running lock stitch with a second imbricating layer performed and excellent hemostasis noted. Posterior cul-de-sac cleaned of clots and debris's. Uterus returned maternal abdomen and right left paracolic gutters cleaned of clots and debris's. Hysterotomy remained hemostatic. Subcutaneous fascia and muscle layers inspected noted be hemostatic. Fascia was reapproximated 0 Vicryl continuous running stitch. Subcutaneous layer reapproximated 2 layers using 2-0 plain. Skin reapproximated with 3-0 Vicryl and continuous subcuticular stitch. Dermabond placed on top. Both mother and in stable condition at the completion of the case. Needle sponge and instrument counts correct at the completion of the case I attest to the content of the Intraoperative Record and any orders documented therein. Any exceptions are noted below. OB Procedure Charges 70480
[2024-02-13] MEDS ORDERED: LACTATED RINGER'S 1,000 ML IV SCH (14:15)
--- NOTE | 2024-02-13 14:28 | Anesthesiology Progress Note ---
Date of Service February 13, 2024 Anesthesia Post Procedure Vital Signs Vital Signs: Temp Pulse Resp BP Pulse Ox 02/13/24 14:20 94 H 20 100 02/13/24 14:20 94 H 124/70 100 02/13/24 14:15 94 H 98 02/13/24 14:10 94 H 20 98 02/13/24 14:10 94 H 122/71 100 02/13/24 14:05 99 H 98 02/13/24 14:00 37.2 C 94 H 20 122/71 100 02/13/24 14:00 94 H 122/71 100 02/13/24 14:00 94 H 119/65 100 02/13/24 12:49 122 H 98 02/13/24 12:47 118 H 136/83 02/13/24 12:44 108 H 137/77 98 02/13/24 12:40 96 H 133/77 02/13/24 12:39 94 H 100 02/13/24 12:34 103 H 100 02/13/24 12:29 104 H 100 02/13/24 12:24 104 H 100 02/13/24 12:19 89 99 02/13/24 12:15 86 152/77 H 02/13/24 12:14 98 H 100 02/13/24 12:09 110 H 100 02/13/24 12:04 75 99 02/13/24 12:00 20 02/13/24 12:00 20 02/13/24 11:59 75 99 02/13/24 11:54 76 99 02/13/24 11:49 77 99 02/13/24 11:44 74 100 02/13/24 11:39 77 99 02/13/24 11:35 80 107/59 L 02/13/24 11:34 85 100 02/13/24 11:30 18 02/13/24 11:30 18 02/13/24 11:29 78 99 02/13/24 11:24 76 99 02/13/24 11:19 77 98 02/13/24 11:14 77 98 02/13/24 11:09 76 98 02/13/24 11:04 75 97 02/13/24 11:01 81 99/54 L 02/13/24 11:00 20 02/13/24 11:00 37.2 C 20 02/13/24 10:59 85 98 02/13/24 10:54 87 98 02/13/24 10:49 81 99 02/13/24 10:44 85 98 02/13/24 10:39 98 H 97 02/13/24 10:38 85 116/62 02/13/24 10:34 85 98 02/13/24 10:30 20 02/13/24 10:30 20 02/13/24 10:29 89 98 02/13/24 10:24 81 97 02/13/24 10:19 90 98 02/13/24 10:14 86 98 02/13/24 10:13 83 118/79 02/13/24 10:09 75 95 02/13/24 10:03 87 100 02/13/24 10:00 18 02/13/24 10:00 36.9 C 18 02/13/24 09:58 83 99 02/13/24 09:53 96 H 100 02/13/24 09:48 86 100 02/13/24 09:43 88 99 02/13/24 09:38 83 100 02/13/24 09:33 85 131/81 100 02/13/24 09:30 20 02/13/24 09:30 20 02/13/24 09:28 90 99 02/13/24 09:23 92 H 100 02/13/24 09:18 83 99 02/13/24 09:13 79 100 02/13/24 09:08 85 100 02/13/24 09:03 75 99 02/13/24 09:01 37.4 C 02/13/24 09:00 20 02/13/24 09:00 20 02/13/24 08:58 75 99 02/13/24 08:53 81 100 02/13/24 08:49 75 111/70 02/13/24 08:48 78 100 02/13/24 08:43 86 100 02/13/24 08:38 95 H 100 02/13/24 08:33 96 H 100 02/13/24 08:30 20 02/13/24 08:30 20 02/13/24 08:28 86 99 02/13/24 08:23 81 99 02/13/24 08:18 85 99 02/13/24 08:13 84 100 02/13/24 08:08 83 100 02/13/24 08:03 83 99 02/13/24 08:00 18 02/13/24 08:00 18 02/13/24 07:58 81 98 02/13/24 07:57 80 108/57 L 02/13/24 07:53 89 99 02/13/24 07:48 99 H 98 02/13/24 07:44 100 H 92 02/13/24 07:43 95 H 98 02/13/24 07:38 97 H 99 02/13/24 07:33 98 02/13/24 07:33 102 H 02/13/24 07:33 97 H 92 02/13/24 07:30 20 02/13/24 07:30 36.9 C 20 02/13/24 07:28 92 H 97 02/13/24 07:23 105 H 97 02/13/24 07:18 89 98 02/13/24 07:14 102 H 92 02/13/24 07:13 98 H 98 02/13/24 07:11 90 109/55 L 02/13/24 07:08 79 99 02/13/24 07:03 86 98 02/13/24 07:00 16 02/13/24 07:00 16 02/13/24 06:58 87 98 02/13/24 06:57 82 114/57 L 02/13/24 06:53 88 97 02/13/24 06:48 83 96 02/13/24 06:43 95 H 96 02/13/24 06:38 91 H 96 02/13/24 06:33 100 H 98 02/13/24 06:30 16 02/13/24 06:30 16 02/13/24 06:30 16 02/13/24 06:30 16 02/13/24 06:28 92 H 98 02/13/24 06:27 90 129/70 02/13/24 06:23 95 H 98 02/13/24 06:18 97 H 98 02/13/24 06:13 102 H 98 02/13/24 06:12 105 H 123/82 02/13/24 06:08 94 H 95 02/13/24 06:03 113 H 99 02/13/24 06:00 16 02/13/24 06:00 16 02/13/24 05:58 90 97 02/13/24 05:57 92 H 125/71 02/13/24 05:53 90 98 02/13/24 05:48 94 H 98 02/13/24 05:43 95 H 97 02/13/24 05:42 89 125/70 02/13/24 05:38 94 H 99 02/13/24 05:35 36.7 C 02/13/24 05:33 95 H 98 02/13/24 05:28 98 02/13/24 05:28 94 H 02/13/24 05:28 94 H 109/61 02/13/24 05:23 88 98 02/13/24 05:18 91 H 99 02/13/24 05:13 88 98 02/13/24 05:12 83 108/56 L 02/13/24 05:08 88 98 02/13/24 05:03 90 98 02/13/24 05:00 16 02/13/24 05:00 16 02/13/24 04:58 99 02/13/24 04:58 83 02/13/24 04:58 86 105/59 L 02/13/24 04:53 94 H 99 02/13/24 04:48 93 H 100 02/13/24 04:43 110 H 99 02/13/24 04:42 91 H 108/57 L 02/13/24 04:38 88 96 02/13/24 04:33 88 98 02/13/24 04:30 36.7 C 02/13/24 04:28 92 H 96 02/13/24 04:27 84 102/55 L 02/13/24 04:23 90 99 02/13/24 04:18 90 97 02/13/24 04:13 87 98 02/13/24 04:12 86 107/54 L 02/13/24 04:08 92 H 98 02/13/24 04:03 90 98 02/13/24 04:00 16 02/13/24 04:00 16 02/13/24 03:58 86 100/55 L 98 02/13/24 03:53 88 97 02/13/24 03:48 106 H 100 02/13/24 03:43 98 02/13/24 03:43 96 H 02/13/24 03:43 90 125/75 02/13/24 03:38 101 H 99 02/13/24 03:33 104 H 98 02/13/24 03:30 18 06/29/24 03:30 18 02/13/24 03:28 107 H 97 02/13/24 03:27 96 H 127/67 02/13/24 03:23 98 H 97 02/13/24 03:18 105 H 98 02/13/24 03:14 100 H 127/77 02/13/24 03:13 104 H 98 02/13/24 03:08 102 H 98 02/13/24 03:03 93 H 98 02/13/24 03:00 18 02/13/24 03:00 37.3 C 18 02/13/24 02:58 94 H 117/82 98 02/13/24 02:53 94 H 100 02/13/24 02:48 92 H 100 02/13/24 02:43 107 H 99 02/13/24 02:42 94 H 125/79 02/13/24 02:38 98 H 99 02/13/24 02:33 91 H 99 02/13/24 02:30 18 02/13/24 02:30 18 02/13/24 02:28 101 H 121/79 99 02/13/24 02:23 93 H 98 02/13/24 02:18 98 H 98 02/13/24 02:13 102 H 100 02/13/24 02:12 92 H 122/80 02/13/24 02:08 105 H 100 02/13/24 02:03 96 H 97 02/13/24 01:58 90 99 02/13/24 01:57 97 H 123/87 02/13/24 01:53 97 H 99 02/13/24 01:48 18 02/13/24 01:48 18 02/13/24 01:48 102 H 100 02/13/24 01:43 99 H 100 02/13/24 01:42 90 120/65 02/13/24 01:38 96 H 99 02/13/24 01:33 95 H 99 02/13/24 01:30 16 02/13/24 01:30 16 02/13/24 01:28 94 H 99 02/13/24 01:27 94 H 129/78 02/13/24 01:23 98 H 99 02/13/24 01:18 106 H 100 02/13/24 01:13 100 H 100 02/13/24 01:11 104 H 128/74 02/13/24 01:08 91 H 99 02/13/24 01:06 102 H 127/78 02/13/24 01:03 96 H 99 02/13/24 01:02 100 H 129/77 02/13/24 01:00 16 02/13/24 01:00 16 02/13/24 00:58 103 H 98 02/13/24 00:57 106 H 127/78 02/13/24 00:53 96 H 99 02/13/24 00:50 100 H 16 134/77 02/13/24 00:48 108 H 140/93 98 02/13/24 00:46 107 H 135/80 02/13/24 00:44 104 H 129/78 02/13/24 00:43 104 H 97 02/13/24 00:42 100 H 129/77 02/13/24 00:40 107 H 16 124/78 02/13/24 00:38 107 H 127/80 98 02/13/24 00:36 108 H 127/79 02/13/24 00:34 107 H 133/80 02/13/24 00:33 118 H 100 02/13/24 00:28 113 H 98 02/13/24 00:22 121 H 100 02/13/24 00:17 109 H 100 02/12/24 23:07 101 H 02/12/24 23:07 127/81 02/12/24 23:00 16 02/12/24 23:00 36.8 C 16 02/12/24 21:59 37.3 C 02/12/24 21:58 100 H 02/12/24 21:58 120/78 02/12/24 21:05 103 H 02/12/24 21:05 133/80 02/12/24 20:17 101 H 02/12/24 20:17 135/78 02/12/24 20:10 37.3 C 02/12/24 19:10 107 H 02/12/24 19:10 142/78 H 02/12/24 19:00 18 02/12/24 19:00 18 02/12/24 18:20 99 H 02/12/24 18:20 128/78 02/12/24 17:15 100 H 02/12/24 17:15 135/79 02/12/24 16:18 20 02/12/24 16:18 37.2 C 20 02/12/24 16:17 95 H 02/12/24 16:17 131/76 02/12/24 15:02 100 H 02/12/24 15:02 134/66 Pain Intensity Right Hip: Pain Intensity: 9 Transfer of Care Handoff Completed per policy Notes Mental Status: alert / awake / arousable Patient Amnestic to Procedure: Yes Nausea / Vomiting: adequately controlled Pain: adequately controlled Airway Patency, RR, SpO2: stable & adequate BP & HR: stable & adequate Hydration State: stable & adequate Neuraxial Anesthesia: was administered and sensory block is resolving Anesthetic Complications: no major complications apparent
[2024-02-13] MEDS: KETOROLAC 30 MG/ML VIAL IV PRN (16:00)
[2024-02-13] MEDS: OXYTOCIN 20 UNITS/LR 1,002 ML IV SCH (16:01)
[2024-02-13] MEDS ORDERED: SODIUM CHLORIDE 0.9% 250 ML IV PRN (17:37)
[2024-02-13] MEDS: SIMETHICONE 80 MG CHEW PO SCH (18:50)
[2024-02-13] MEDS: DOCUSATE SODIUM 100 MG CAP PO SCH (21:06)
[2024-02-14] MEDS: diphenhydrAMINE 50 MG/ML VIAL IV PRN (00:35)
[2024-02-14 06:31] LABS: Hematocrit (blood only) 29.6 % (37.0-47.0); Hemoglobin 9.9 g/dl (12.0-16.0)
[2024-02-14] MEDS ORDERED: ONDANSETRON INJ 2 MG/ML 2 ML VIAL IV PRN (07:32)
[2024-02-14] MEDS ORDERED: diphenhydrAMINE 50 MG/ML VIAL IV PRN (07:32)
[2024-02-14] MEDS ORDERED: KETOROLAC 30 MG/ML VIAL IV PRN (07:32)
[2024-02-14] MEDS ORDERED: oxyCODONE/ACETAMINOPHEN 5mg/325mg TAB PO PRN (07:32)
--- NOTE | 2024-02-14 07:42 | Obstetrical Progress Note ---
Date of Service February 14, 2024 Assessment & Plan (1) Encounter for care and examination after delivery: Day 1 status post primary . Doing well we will continue with routine care Subjective Ambulation: ambulating normally Voiding: no voiding problems Passing Gas:: Yes Diet Tolerance:: regular diet Lochia:: Moderate Feeding Type:: breast feeding Physical Exam Constitutional WD/WN, vitals as above Respiratory normal respiratory effort; no respiratory distress and no labored breathing Cardiovascular Extremities: no calf tenderness Gastrointestinal (Abdomen) Inspection/Auscultation: abdomen normal to inspection; abdomen not distended Percussion/Palpation: abdomen soft; abdomen nontender, no guarding and abdomen not rigid Incision clean, dry and intact. Genitourinary OB Exam Abdomen: + fundal height Fundus: + firm and + relation to umbilicus (Below); not tender or not boggy Results & Data Vital Signs (Past 12 Hours) Vital Signs Temp Pulse Resp BP BP Pulse Ox O2 Del Method 02/14/24 06:18 16 95 02/14/24 05:13 16 97 02/14/24 04:06 16 97 02/14/24 03:05 36.8 C 94 H 20 101/66 93 Room Air 02/14/24 03:00 16 96 02/14/24 02:32 16 94 02/14/24 01:19 16 97 02/14/24 00:00 16 97 02/13/24 23:00 16 97 02/13/24 23:00 36.5 C 89 18 113/72 98 Room Air 02/13/24 22:42 16 95 02/13/24 21:44 16 99 02/13/24 20:30 16 99 02/13/24 20:00 Room Air 02/13/24 20:00 36.9 C 88 16 107/71 99 Room Air 02/13/24 19:45 16 99
[2024-02-14] MEDS: PRENATAL VITAMIN 1 TAB PO SCH (08:48)
[2024-02-14] MEDS: FERROUS SULFATE 325 MG TAB PO SCH (08:48)
[2024-02-14] MEDS: IBUPROFEN 600 MG TAB PO PRN (12:55)
[2024-02-14] MEDS ORDERED: bisacodyL 5 MG TABEC PO SCH (20:00)
[2024-02-14] MEDS: diphenhydrAMINE Capsule 25 MG CAP PO PRN (22:50)
--- NOTE | 2024-02-15 07:14 | Obstetrical Progress Note ---
Date of Service February 15, 2024 Assessment & Plan (1) Encounter for care and examination after delivery: Day 2 status post primary . Doing well. Stable for discharge if preferred Subjective Ambulation: ambulating normally Voiding: no voiding problems Passing Gas:: Yes Diet Tolerance:: regular diet Lochia:: Moderate Feeding Type:: breast feeding Physical Exam Constitutional WD/WN, vitals as above Respiratory normal respiratory effort; no respiratory distress and no labored breathing Cardiovascular Extremities: no calf tenderness Gastrointestinal (Abdomen) Inspection/Auscultation: abdomen normal to inspection; abdomen not distended Percussion/Palpation: abdomen soft; abdomen nontender, no guarding and abdomen not rigid Incision clean, dry and intact. Genitourinary OB Exam Abdomen: + fundal height Fundus: + firm and + relation to umbilicus (Below); not tender or not boggy Results & Data Vital Signs (Past 12 Hours) Vital Signs Temp Pulse Resp BP Pulse Ox O2 Del Method 02/14/24 23:05 36.8 C 88 18 96/65 L 97 Room Air 02/14/24 19:40 37.0 C 92 H 16 116/81 98 Room Air
[2024-02-15] MEDS ORDERED: bisacodyL 10 MG SUPP PR PRN (14:01)
== END 2024-02-15 13:40 | disposition home or self-care (01) | DRG 788 ==
LOC: 4S1 07:40 → 4E2 02-13 17:30